=== PATIENT | male | born 1975 | race Caucasian/White ===

== ENCOUNTER 2018-07-20 12:21 | Emergency (ER) | payer MEDICARE, MEDICAID ==
[~2018-07-20] VITALS: Ht 165.1 cm; Wt 90.0 kg
[~2018-07-20 12:21] MED LIST: INSULIN; LASIX PO; LOTENSIN PO; METOPROLOL PO; NORVASC PO; PAXIL PO
[2018-07-20 12:35] VITALS: BP 125/82
== END 2018-07-20 14:11 | disposition left against medical advice (07) ==
LOC: ER 12:21
DX: R07.9 Chest pain, unspecified (principal); Z53.21 Procedure and treatment not carried out due to patient leaving prior to being seen by health care provider
CPT/HCPCS: 93005